=== PATIENT | female | born 1990 | race Asian ===

== ENCOUNTER 2017-04-20 17:43 | Emergency (ER) | payer SELFPAY ==
[~2017-04-20] VITALS: Ht 162.6 cm; Wt 54.5 kg
[2017-04-20 17:43] VITALS: TEMP 97
[2017-04-20 18:34] VITALS: BP 105/63; PULSE 52
[2017-04-20 18:38] LABS: HEMATOCRIT 41.6 % (37.0-47.0); HEMOGLOBIN 13.8 g/dl (12.5-16.0); MEAN CELL VOLUME 92 fl (80.0-100.0); MEAN CORPUSCULAR HEMOGLOBIN 31 pg (27.0-31.0); MEAN CORPUSCULAR HGB CONC 33 g/dl (33.0-37.0); MEAN PLATELET VOLUME 10.1 fl (7.4-10.4); PLATELET COUNT 205 K/mm3 (130-400); WHITE BLOOD COUNT 10.7 K/mm3 (4.8-10.8)
[2017-04-20 18:41] LABS: ADD PATHOLOGY DIFF REVIEW NO
[2017-04-20 18:43] LABS: ADJUSTED CALCIUM 8.6 mg/dL (8.4-10.2); ALBUMIN 4.3 gm/dL (3.5-5.0); BILIRUBIN,TOTAL 0.9 mg/dL (0.0-1.0); CALCIUM 8.8 mg/dL (8.4-10.2); CREATININE, serum 0.78 mg/dL (0.52-1.25); POTASSIUM 3.1 mmol/L (3.4-5.0); TOTAL PROTEIN 7.5 gm/dL (6.4-8.2)
[2017-04-20 19:01] LABS: BAND 2 % (0-10); LYMPHOCYTE 48 % (20.0-51.0); NEUTROPHILS 48 % (42.0-75.2); TOTAL CELLS COUNTED 100
[2017-04-20 19:02] LABS: PLATELET ESTIMATE NORMAL (NORMAL)
== END 2017-04-20 18:34 | disposition short-term general hospital (02) ==
LOC: COL.ER 17:43 → EDBD 17:44 → COL.ER 17:44
PROVIDERS: Family Medicine
DX: S09.90XA Unspecified injury of head, initial encounter (principal); S32.592A Other specified fracture of left pubis, initial encounter for closed fracture; V03.10XA Pedestrian on foot injured in collision with car, pick-up truck or van in traffic accident, initial encounter
CPT/HCPCS: J0330; J3010; J7030; J7060